=== PATIENT | male | born 1990 | race African-American/Black ===

== ENCOUNTER 2017-04-16 09:51 | Emergency (ER) | payer SELFPAY ==
[2017-04-16] MEDS ORDERED: PSEUDOEPHEDRINE HCL 30 MG TABLET PO ONE (10:33)
[2017-04-16] MEDS ORDERED: LORATADINE 10 MG TABLET PO ONE (10:33)
--- NOTE | 2017-04-16 10:35 | ER Document Report ---
HPI - HPI Patient complains to provider of: runny nose, sore throat and nonproductive cough for 2 weeks Onset: Other - 2 weeks Onset/Duration: Gradual Quality of pain: Achy - sore throat Associated Symptoms: Allergy/hay fever, Nonproductive cough, Rhinnorhea, Sinus pain/drainage, Sore throat. denies: Chest pain, Chills, Productive cough, Earache, Fever, Headache, Hurts to breath, Shortness of breath Exacerbated by: Denies Relieved by: Denies Similar symptoms previously: No Recently seen / treated by doctor: No - REPRODUCTIVE Reproductive: DENIES: : Past Medical History - Social History Smoking Status: Current Every Day Smoker Chew tobacco use (# tins/day): No Frequency of alcohol use: Occasional Drug Abuse: None Family History: Malignancy - Past Medical History Cardiac Medical History: Reports: Hx Hypercholesterolemia, Hx Hypertension Musculoskeltal Medical History: Reports Hx Musculoskeletal Deformity, Reports Hx Musculoskeletal Trauma Surgical Hx: Negative - Immunizations Hx Diphtheria, Pertussis, Tetanus Vaccination: No Vertical Provider Document - CONSTITUTIONAL Notes: PHYSICAL EXAM GENERAL: Alert, interacts well. HEAD: Normocephalic, atraumatic. EYES: Pupils equal, round, and reactive to light. Extraocular movements intact. ENT: Oral mucosa moist, tongue midline. Uvula midline. Airway patent. No evidence of tonsillar enlargement, peritonsillar abscess, retropharyngeal abscess. NECK: Full range of motion. Supple. Trachea midline. LUNGS: Clear to auscultation bilaterally, no wheezes, rales, or rhonchi. No respiratory distress. HEART: Regular rate and rhythm. No murmurs, gallops, or rubs. EXTREMITIES: Moves all 4 extremities spontaneously. No edema, radial and dorsalis pedis pulses 2/4 bilaterally. No cyanosis. NEUROLOGICAL: Alert and oriented x4. Normal speech. PSYCH: Normal affect, normal mood. SKIN: Warm, dry, normal turgor. No rashes or lesions noted. - INFECTION CONTROL TRAVEL OUTSIDE OF THE [place] IN LAST 30 DAYS: No - RESPIRATORY O2 Sat by Pulse Oximetry: 97 Course - Re-evaluation Re-evalutation: 04/16/17 21:09 Patient is a 27-year-old male who is hemodynamic stable, no acute distress afebrile. History and physical exam consistent with hayfever. Patient educated on medications to purchase [id number] such as antihistamines and decongestants to help with her symptoms. Patient is to follow-up with her primary care provider. - Vital Signs Vital signs: Temp Pulse Resp BP Pulse Ox 98.5 F 73 18 122/77 97 04/16/17 09:59 04/16/17 09:59 04/16/17 09:59 04/16/17 09:59 04/16/17 09:59 Discharge - Discharge Clinical Impression: Rhinorrhea Condition: Good Disposition: HOME, SELF-CARE Instructions: Sore Throat ([facility]), Viral Syndrome ([facility]) Additional Instructions: You can take pseudoephedrine, Benadryl, Claritin and TheraFlu as needed to help with your nasal congestion. Prescriptions: Benzonatate [Tessalon Perles 100 mg Capsule] 100 mg PO Q8HP PRN #40 capsule PRN Reason: Forms: Return to Work
[2017-04-16 11:57] VITALS: BP 130/78
== END 2017-04-16 11:55 | disposition home or self-care (01) ==
LOC: ER 09:51
DX: R09.89 Other specified symptoms and signs involving the circulatory and respiratory systems (principal); J02.9 Acute pharyngitis, unspecified; R05 Cough; F17.200 Nicotine dependence, unspecified, uncomplicated
CPT/HCPCS: 87070; 87077; 87880; 99283

== ENCOUNTER 2020-05-23 05:55 | Emergency (ER) | payer SELFPAY ==
--- NOTE | 2020-05-23 07:18 | ER Document Report ---
Entered by KAMLA GRUBER SCRIBE 05/23/20 0707 Acting as scribe for:MIKE GUILLEN MD ED Extremity Problem, Lower - General Chief Complaint: Ankle Injury Stated Complaint: LEFT ANKLE INJURY Time Seen by Provider: 05/23/20 06:48 Primary Care Provider: ALEKS DAILY MD [Primary Care Provider] - Follow up as needed ESCOBAR MCCURDY JR, DO [ACTIVE PROVISIONAL STAFF] - Follow up as needed Information source: Patient Notes: This 30 year old male patient presents to the emergency department today with complaints of left ankle pain. Patient was up making his child a bottle around 3:00 AM this morning and he was going down some steps, stepped on his son's shoe, and then rolled his left ankle. TRAVEL OUTSIDE OF THE [place] IN LAST 30 DAYS: No - Related Data Allergies/Adverse Reactions: No Known Allergies Allergy (Verified 04/16/17 10:03) Past Medical History - General Information source: Patient - Social History Smoking Status: Current Every Day Smoker Cigarette use (# per day): Yes - "1 cig per day" Frequency of alcohol use: None Drug Abuse: None Occupation: [employer] for [employer] Lives with: Family Family History: Reviewed & Not Pertinent, Malignancy Patient has homicidal ideation: No - Past Medical History Cardiac Medical History: Reports: Hx Hypercholesterolemia, Hx Hypertension Musculoskeletal Medical History: Reports Hx Musculoskeletal Deformity, Reports Hx Musculoskeletal Trauma Surgical Hx: Negative - Immunizations Hx Diphtheria, Pertussis, Tetanus Vaccination: No Review of Systems - Review of Systems Constitutional: No symptoms reported EENT: No symptoms reported Cardiovascular: No symptoms reported Respiratory: No symptoms reported Gastrointestinal: No symptoms reported Genitourinary: No symptoms reported Male Genitourinary: No symptoms reported Musculoskeletal: See HPI, Joint pain - left, Ankle swelling - left Skin: No symptoms reported Hematologic/Lymphatic: No symptoms reported Neurological/Psychological: No symptoms reported -: Yes All other systems reviewed and negative Physical Exam - Vital signs Vitals: Temp Pulse Resp BP Pulse Ox 98.8 F 62 16 135/74 H 99 05/23/20 05:59 05/23/20 05:59 05/23/20 05:59 05/23/20 05:59 05/23/20 05:59 - Notes Notes: Physical Exam: General: Alert, appears well. HEENT: Normocephalic. Atraumatic. PERRLA. Extraocular movements intact. Oropharynx clear. Neck: Supple. Respiratory: No respiratory distress. Abdominal: Normal Inspection. No distension. Extremities: No tenderness with palpation over the left cuboid or left proximal fifth metatarsal. There is tenderness with palpation and swelling over the lateral left malleolus, the anterior left ankle, distal tip of the left malleolus. Neurological: Normal cognition. AAOx4. Normal speech. Psychological: Normal affect. Normal Mood. Skin: Warm. Dry. Normal color. Course - Re-evaluation Re-evalutation: 05/23/20 16:43 The ankle stirrup was placed on the left ankle by the nurse. It fits well and provides stability to prevent inversion and eversion at the ankle. He was fitted with crutches and provided crutch training. - Vital Signs Vital signs: Temp Pulse Resp BP Pulse Ox 98.1 F 62 18 118/69 99 05/23/20 08:52 05/23/20 08:52 05/23/20 08:52 05/23/20 08:52 05/23/20 08:52 - Diagnostic Test Radiology reviewed: Image reviewed, Reports reviewed - Left ankle x-ray shows some lateral soft tissue swelling without acute fracture. Discharge - Discharge Clinical Impression: Left ankle sprain Qualifiers: Encounter type: initial encounter Involved ligament of ankle: unspecified ligament Qualified Code(s): S93.402A - Sprain of unspecified ligament of left ankle, initial encounter Condition: Stable Disposition: HOME, SELF-CARE Instructions: Ankle Stirrup Splint ([facility]), Use of Crutches ([facility]), Ice & Elevation ([facility]), Ice Packs ([facility]), Sprained Ankle ([facility]) Additional Instructions: Use the crutches to limit weightbearing for the next few days. Use the ankle stirrup splint to prevent further inversion type injury. The ankle stirrup splint will allow your ankle to rotate up and down without twisting from side to side. Elevate your foot as much as possible, use ice packs today to help reduce swelling. Take Tylenol and ibuprofen for pain and inflammation. When you return to work, you should try using an ankle brace that you can fit inside your shoe for extra stability and support until you are completely well. Follow-up with your primary care provider or Dr. Mccurdy at [facility] if not improving. RETURN TO THE EMERGENCY ROOM IF ANY NEW OR WORSENING SYMPTOMS. Forms: Return to Work Referrals: ALEKS DAILY MD [Primary Care Provider] - Follow up as needed ESCOBAR MCCURDY JR, DO [ACTIVE PROVISIONAL STAFF] - Follow up as needed I personally performed the services described in the documentation, reviewed and edited the documentation which was dictated to the scribe in my presence, and it accurately records my words and actions.
--- NOTE | 2020-05-23 07:57 | RADIOLOGY REPORT (SQ) ---
EXAM DESCRIPTION: XR ANKLE 3 OR MORE VIEWS COMPLETED DATE/TME: 05/23/2020 07:02 CLINICAL HISTORY: 30 years Male, Inversion injury COMPARISON: 04/24/15. Findings: Small calcaneal enthesophytes. 0.5 cm ossicle at the lateral aspect of the left foot on AP oblique view, stable. Bones, joints, and soft tissues of the LEFT XR ANKLE 3 OR MORE VIEWS appear otherwise unremarkable. IMPRESSION: No acute findings.
[2020-05-23 08:54] VITALS: BP 118/69
== END 2020-05-23 08:54 | disposition home or self-care (01) ==
LOC: ER 05:55
DX: S93.402A Sprain of unspecified ligament of left ankle, initial encounter (principal); X50.0XXA Overexertion from strenuous movement or load, initial encounter; Y93.89 Activity, other specified; F17.210 Nicotine dependence, cigarettes, uncomplicated; I10 Essential (primary) hypertension
CPT/HCPCS: 99283